=== PATIENT | male | born 1955 | race Caucasian/White ===

== ENCOUNTER → 2017-01-17 | Outpatient (CLI) | payer BC ==
[~2017-01-17] MED LIST: "\\\"BP PILL\\\""; AUGMENTIN 875 M1 TAB PO; CIPRO250 MG PO; CIPROFLOXACIN500 MG PO; DITROPAN5 MG PO; FLOMAX0.4 MG PO; LEVOFLOXACIN500 MG PO; LOMOCOT 0.025 M1 TAB PO; LOPRESSOR25 MG PO; MOTRIN800 MG PO; PERCOCET 325 MG1 TA2 PO; PERCOCET 325 MG1 TA3 PO; PERCOCET 325 MG1 TA5 PO; PERCOCET 325 MG1 TA7 PO; PREDNISONE20 MG PO; PYRIDIATE200 MG PO; PYRIDIUM200 MG PO; RESTORIL30 MG PO; ULTRAM50 MG PO; ZESTORETIC 12.51 TA1 PO; ZOFRAN4 MG PO; Zofran4 MG PO
[2017-01-18 18:05] LABS: HCV RNA (INTERNATIONAL UNITS) 14300000 IU/mL (.); HEPATITIS C QNT See Final Results IU/mL (.)
[2017-01-20 17:12] LABS: HCV REFLEX CHARGE CHG; HEPATITIS C GENOTYPE 2b (.)
== END | disposition home or self-care (01) ==
LOC: LAB 10:41
PROVIDERS: Family Medicine
DX: B19.20 Unspecified viral hepatitis C without hepatic coma (principal)

== ENCOUNTER → 2017-01-21 | Outpatient (CLI) | payer BC | END | disposition home or self-care (01) | LOC: US 07:08 | DX: N28.1 Cyst of kidney, acquired (principal); K76.89 Other specified diseases of liver ==

== ENCOUNTER → 2017-01-28 | Outpatient (CLI) | payer BC ==
--- NOTE | ~2017-01-28 | EKG ---
[place], [place] ELECTROCARDIOGRAM REPORT NAME: ALLIE HOBSON UNIT #: [id number] ROOM: DOCTOR: VINAYAK SADLER MD BIRTHDATE: [birth year] DOS: 01/28/2017 TIME: 1723 hours. Sinus rhythm with isolated PVCs, with nonspecific ST-T changes. VINAYAK SADLER MD CM:EKGRPT:ELECTROCARDIOGRAM REPORT [id number] 1409 VINAYAK SADLER MD
--- NOTE | ~2017-01-28 | EKG ---
[place], [place] ELECTROCARDIOGRAM REPORT NAME: ALLIE HOBSON UNIT #: [id number] ROOM: DOCTOR: VINAYAK SADLER MD BIRTHDATE: [birth year] DOS: 01/28/2017 TIME: 10:17:23 Normal sinus rhythm, isolated PVCs with nonspecific ST-T changes. VINAYAK SADLER MD CM:EKGRPT:ELECTROCARDIOGRAM REPORT 1427 1458 VINAYAK SADLER MD
== END | disposition home or self-care (01) ==
LOC: CARD 10:06
DX: R07.9 Chest pain, unspecified (principal)

== ENCOUNTER → 2017-02-04 | Outpatient (CLI) | payer BC ==
--- NOTE | ~2017-02-04 | ST ---
[place], [place] EXERCISE STRESS TEST REPORT NAME: ALLIE HOBSON [facility] #: [id number] UNIT #: [id number] ROOM: DOCTOR: VINAYAK SADLER MD BIRTHDATE: [birth year] DOS: 02/04/2017 The patient walked on the Matt protocol for 8 minutes and 11 seconds. Heart rate is 136, 85% of predicted heart rate. Procedure terminated on completion of protocol. Baseline echocardiogram, sinus rhythm with exercise. No new EKG changes. No chest pain. Blood pressure and heart rate response was normal. FINAL IMPRESSION: Normal EKG portion of the exercise stress test. FINAL IMPRESSION: No EKG changes. No chest pain, no dysrhythmia. Blood pressure and heart rate response was normal. Nuclear images will be reported separately. VINAYAK SADLER MD CM:STRESS:EXERCISE STRESS TEST REPORT 0712 0744 KEON SADLER MD
== END | disposition home or self-care (01) ==
LOC: CARD 03:01
DX: R07.89 Other chest pain (principal); R53.81 Other malaise

== ENCOUNTER → 2017-02-28 | Outpatient (CLI) | payer BC ==
[2017-02-28 08:55] LABS: URINE AMPHETAMINES < 1000 (1000ng/ml); URINE BARBITURATES < 200 (200ng/ml); URINE BENZODIAZEPINES < 200 (200ng/ml); URINE CANNABINOIDS (THC) < 50 (50ng/ml); URINE COCAINE < 300 (300ng/ml); URINE METHADONE < 300 (300ng/ml); URINE OPIATES < 300 (300ng/ml)
[2017-02-28 08:59] LABS: BASO % 0.7 % (0.0-1.0); EOS # 0.2 10*3/uL (0.0-0.4); EOS % 3.4 % (1.0-4.0); HEMATOCRIT 48.2 % (42.0-52.0); HEMOGLOBIN 16.1 g/dl (14.0-18.0); LYMPH # 1.9 10*3/uL (1.3-4.4); LYMPH % 30.2 % (27.0-41.0); MEAN CELL VOLUME 96.8 fl (80.0-94.0); MEAN CORPUSCULAR HGB 32.3 pg (27.0-31.0); MEAN CORPUSCULAR HGB CONC 33.4 g/dl (33.0-37.0); MEAN PLATELET VOLUME 10.4 fl (9.6-12.3); MONO # 0.5 10*3/uL (0.1-1.0); MONO % 7.5 % (3.0-9.0); NEUT # 3.6 10*3/uL (2.3-7.9); NEUT % 57.7 % (47.0-73.0); PLATELET COUNT AUTOMATED 180 10*3/uL (130-400); RED BLOOD COUNT 4.98 10*6/uL (4.50-5.90); RED CELL DISTRI WIDTH 13.6 % (0-14.5); URINE PHENCYCLIDINE < 25 (25ng/ml); WHITE BLOOD COUNT 6.2 10*3/uL (4.8-10.8)
[2017-02-28 09:20] LABS: ALBUMIN 3.3 gm/dl (3.1-4.5); BUN 19 mg/dl (7-24); CHLORIDE 106 mmol/L (98-107); CREATININE 1.22 mg/dL (0.70-1.30); LIPASE 295 U/L (73-393); POTASSIUM 3.8 mmol/L (3.5-5.1); SGOT/AST 159 IU/L (3-35); SGPT/ALT 208 U/L (12-78); SODIUM 139 mmol/L (136-145)
[2017-02-28 09:21] LABS: ALKALINE PHOSPHATASE 108 U/L (45-117); BILIRUBIN, DIRECT 0.9 mg/dL (0.0-0.2); TOTAL PROTEIN 6.8 gm/dL (6.4-8.2)
[2017-03-01 08:09] LABS: HEPATITIS B SURFACE AB 006395 Non Reactive (.)
== END | disposition home or self-care (01) ==
LOC: LAB 08:19
PROVIDERS: Nurse Practitioner Family
DX: B18.2 Chronic viral hepatitis C (principal); R79.89 Other specified abnormal findings of blood chemistry; R74.8 Abnormal levels of other serum enzymes

== ENCOUNTER → 2017-05-06 | Outpatient (CLI) | payer BC ==
[2017-05-06 10:54] LABS: HEMOGLOBIN 17.6 g/dl (14.0-18.0); MEAN CELL VOLUME 94.7 fl (80.0-94.0); MEAN CORPUSCULAR HGB 33.3 pg (27.0-31.0); MEAN CORPUSCULAR HGB CONC 35.2 g/dl (33.0-37.0); MEAN PLATELET VOLUME 9.7 fl (9.6-12.3); RED BLOOD COUNT 5.28 10*6/uL (4.50-5.90); RED CELL DISTRI WIDTH 12.2 % (0-14.5); WHITE BLOOD COUNT 10.1 10*3/uL (4.8-10.8)
[2017-05-06 11:22] LABS: ALKALINE PHOSPHATASE 80 U/L (45-117); BILIRUBIN, DIRECT 0.3 mg/dL (0.0-0.2); BUN 22 mg/dl (7-24); CHLORIDE 105 mmol/L (98-107); CREATININE 1.27 mg/dL (0.70-1.30); POTASSIUM 4.1 mmol/L (3.5-5.1); SGOT/AST 18 IU/L (3-35); SGPT/ALT 21 U/L (12-78); SODIUM 142 mmol/L (136-145)
[2017-05-08 20:08] LABS: HEPATITIS C QUANTITATION <15 IU/mL (.)
== END | disposition home or self-care (01) ==
LOC: LAB 10:29
PROVIDERS: Nurse Practitioner Family
DX: B18.2 Chronic viral hepatitis C (principal)

== ENCOUNTER → 2017-07-25 | Outpatient (CLI) | payer BC | END | disposition home or self-care (01) | LOC: RAD 11:52 | DX: M25.811 Other specified joint disorders, right shoulder (principal) ==

== ENCOUNTER → 2017-08-11 | Outpatient (CLI) | payer BC ==
[2017-08-11 08:16] LABS: BASO # 0.1 10*3/uL (0.0-0.1); BASO % 0.9 % (0.0-1.0); EOS # 0.4 10*3/uL (0.0-0.4); EOS % 4.3 % (1.0-4.0); HEMATOCRIT 50.4 % (42.0-52.0); HEMOGLOBIN 17.3 g/dl (14.0-18.0); LYMPH # 2.5 10*3/uL (1.3-4.4); LYMPH % 30.9 % (27.0-41.0); MEAN CELL VOLUME 95.6 fl (80.0-94.0); MEAN CORPUSCULAR HGB 32.8 pg (27.0-31.0); MEAN CORPUSCULAR HGB CONC 34.3 g/dl (33.0-37.0); MEAN PLATELET VOLUME 10.3 fl (9.6-12.3); MONO # 0.6 10*3/uL (0.1-1.0); MONO % 7.3 % (3.0-9.0); NEUT # 4.6 10*3/uL (2.3-7.9); NEUT % 56.1 % (47.0-73.0); PLATELET COUNT AUTOMATED 228 10*3/uL (130-400); RED BLOOD COUNT 5.27 10*6/uL (4.50-5.90); RED CELL DISTRI WIDTH 12.2 % (0-14.5); WHITE BLOOD COUNT 8.2 10*3/uL (4.8-10.8)
[2017-08-11 08:50] LABS: ALBUMIN 3.8 gm/dl (3.1-4.5); ALKALINE PHOSPHATASE 67 U/L (45-117); BILIRUBIN, DIRECT 0.2 mg/dL (0.0-0.2); BUN 25 mg/dl (7-24); CHLORIDE 105 mmol/L (98-107); CREATININE 1.21 mg/dL (0.70-1.30); POTASSIUM 3.9 mmol/L (3.5-5.1); SGOT/AST 19 IU/L (3-35); SGPT/ALT 28 U/L (12-78); SODIUM 142 mmol/L (136-145); TOTAL PROTEIN 7.4 gm/dL (6.4-8.2)
[2017-08-13 19:06] LABS: HEPATITIS C QUANTITATION HCV Not Detected IU/mL (.)
== END | disposition home or self-care (01) ==
LOC: LAB 06:48
PROVIDERS: Nurse Practitioner Family
DX: B18.2 Chronic viral hepatitis C (principal)

== ENCOUNTER → 2018-01-06 | Outpatient (CLI) | payer BC ==
[2018-01-06 08:47] LABS: ALBUMIN 3.9 gm/dl (3.1-4.5); BILIRUBIN, DIRECT 0.2 mg/dL (0.0-0.2); TOTAL PROTEIN 7.2 gm/dL (6.4-8.2)
[2018-01-07 18:04] LABS: HEPATITIS C QNT HCV Not Detected IU/mL (.)
== END | disposition home or self-care (01) ==
LOC: LAB 07:41
PROVIDERS: Nurse Practitioner Family
DX: B18.2 Chronic viral hepatitis C (principal)

== ENCOUNTER 2018-05-10 17:38 | Emergency (ER) | payer BC ==
[~2018-05-10] VITALS: Ht 182.8 cm; Wt 95.3 kg
[2018-05-10 18:09] LABS: BILIRUBIN NEGATIVE (NEGATIVE); BLOOD 3+ (NEGATIVE); CLARITY SL CLOUDY (CLEAR); COLOR YELLOW (YELLOW); GLUCOSE NEGATIVE (NEGATIVE); KETONE NEGATIVE (NEGATIVE); LEUKO ESTERASE NEGATIVE (NEGATIVE); NITRITE NEGATIVE (NEGATIVE); SPECIFIC GRAVITY >= 1.030 (1.005-1.030)
[2018-05-10 18:18] LABS: RBC TNTC rbc/hpf (0-2)
[2018-05-10 18:22] LABS: BACTERIA TRACE; HYALINE CAST 0-2
== END 2018-05-10 20:02 | disposition home or self-care (01) ==
LOC: ED 17:38
PROVIDERS: Emergency Medicine
DX: R31.9 Hematuria, unspecified (principal); N48.89 Other specified disorders of penis; Z87.442 Personal history of urinary calculi; Z79.899 Other long term (current) drug therapy

== ENCOUNTER → 2018-11-03 | Outpatient (CLI) | payer BC ==
[~2018-11-03] MED LIST changes: +AMLODIPINE BESYL5 MG PO; +AVPAK AZITHROM250 M1 PO; +LEVAQUIN500 M2 PO; +MEDROL DOSEPAK4 MG PO; +MUCINEX ER600 MG PO; +OXYCODONE HCL5 M1 PO; +PREDNISONE10 MG PO; +PROAIR HFA8.5 GM INH; +SUMATRIPTA6 MG/0.53 SQ; +TESSALON PERLE100 M1 PO; +ZESTORETIC 20-1 EACH PO; +[UNRECOGNIZED DRUG - OTHER] PO
--- NOTE | ~2018-11-03 | ST ---
[place], [place] EXERCISE STRESS TEST REPORT [id number] UNIT #: [id number] ROOM: DOCTOR: VINAYAK SADLER MD BIRTHDATE: [birth year] DOS: 11/03/2018 PORTION OF THE EXERCISE CARDIOLITE The patient walked on the Matt protocol for 7 minutes 45 seconds achieving a heart rate of 133, which is 85% predicted heart rate. Procedure was terminated, completion of protocol. Baseline cardiogram, sinus with exercise, no EKG changes, isolated PVC. Blood pressure and heart rate response was normal with adequate double product. FINAL IMPRESSION: No EKG changes with exercise. No chest pain with exercise. No dysrhythmia with exercise. Blood pressure and heart rate response was normal. Nuclear images will be reported separately. VINAYAK SADLER MD CM:STRESS:EXERCISE STRESS TEST REPORT 0801 1331 VINAYAK SADLER MD
--- NOTE | 2018-11-03 07:45 | NUR ---
INFORMED CONSENT OBTAINED FOR EXERCISE CARDIOLITE STRESS TEST WITH DR. SADLER. RESTING EKG SINUS MALCOLM WITH A SUPINE HR OF 59 WITH BP OF 130/80 AND HR OF 67 WITH BP OF 128/84 IN STANDING POSITION. PT COMPLETED 7:45 OF A 2:00 CHRISTA PROTOCOL WITH COMPLETION OF 3:45 OF STAGE III AT 3.4 MPH WITH A 14% GRADE. REACHED A PEAK HR OF 133 WHCIH IS 85% OF PREDICTED MAX WITH A PEAK BP OF 180/90. TEST TERMINATED BECAUSE OF FATIGUE. HAD NO CHEST PAIN OR ANY EKG CHANGES. HAS A GOOD EXERCISE TOLERANCE. LAST RECOVERY HR OF 106 WITH BP OF 146/80. AWAITING SCANNING IN STABLE CONDITION.
== END | disposition home or self-care (01) ==
LOC: CARD 01:01
DX: I20.9 Angina pectoris, unspecified (principal)

== ENCOUNTER 2018-12-10 03:30 | Inpatient (IN) | payer BC ==
[~2018-12-10] VITALS: Ht 182.8 cm; Wt 97.2 kg
[2018-12-10] VITALS (8 sets, daily range): BP systolic 116–158; BP diastolic 71–95
--- NOTE | ~2018-12-10 | EKG ---
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
--- NOTE | ~2018-12-10 | PR ---
[place], [place] PROGRESS NOTE NAME: ALLIE HOBSON UNIT #: [id number] ROOM: 506 DOCTOR: BRIDGETTE ONEIL MD,ANY BIRTHDATE: [birth year] DOS: 12/12/2018 PULMONARY PROGRESS NOTE SUBJECTIVE: He has bronchoscopy done yesterday with significant reduction and improvement of respiratory symptom were noted. Denies any symptoms of fever or chills. Denies symptoms of hemoptysis. Shortness of breath and wheezing improved markedly. OBJECTIVE: VITAL SIGNS: This morning, normal temperature, respiratory rate 20, heart rate 99, blood pressure 141/88. Pulse ox saturation on room air 97% saturation recorded. HEENT: Examination shows head was atraumatic. Eyes nonicterus. NECK: Supple. CARDIOVASCULAR: S1, S2 audible. LUNGS: Noted without any wheeze or crackles. ABDOMEN: Soft, nontender, bowel sounds present. EXTREMITIES: No acute change. IMPRESSION: Resolution of the acute exacerbation of chronic obstructive pulmonary disease, gradual and progressive at the present time. Improvement in respiratory symptom noted post-bronchoscopy, culture noted normal anitra. PLAN OF TREATMENT: The patient could be discharged home on oral antibiotics, bronchodilators, and tapering prednisone. Outpatient status was already planned to be done in the next few days. ANY ANGELES MD CM:PNTRANS 1530 2138 ANY ONEIL MD 12/21/18 1020 interface
--- NOTE | ~2018-12-10 | EKG ---
[place], [place] ELECTROCARDIOGRAM REPORT NAME: ALLIE HOBSON UNIT #: [id number] ROOM: 506 DOCTOR: JUAN LUIS DRAFT REPORT BIRTHDATE: [birth year] [facility] Test Date: 2018-12-10 Test Time: 12:50:52 Pat Name: ALLIE HOBSON Department: Room: 506 1 Gender: M Schedule Announcer: : 1955 Requested By: ANY ONEIL Order Number: [id number] Reading MD: Ashwin Fuller MD Measurements Intervals [place] Rate: 88 P: 56 RI: 145 QRS: -3 QRSD: 94 T: 14 QT: 373 QTc: 452 Interpretive Statements Sinus rhythm Baseline wander in lead(s) V1 Compared to ECG 11/14/2018 12:45:07 T-wave abnormality no longer present Electronically Signed On 12-14-2018 7:47:16 PDT by Ashwin Fuller MD CM:EKGRPT:ELECTROCARDIOGRAM REPORT 1250 0747 ANY MCKNIGHT DRAFT REPORT ANY ONEIL MD
--- NOTE | ~2018-12-10 | PROC NOTE ---
[place], [place] PROCEDURE NOTE [id number] #: [id number] ROOM: 506 DOCTOR: BRIDGETTE ONEIL MD,ANY BIRTHDATE: [birth year] DOS: 12/11/2018 PROCEDURE: Bronchoscopy. PREOPERATIVE DIAGNOSES: Severe cough and wheeze, not resolving. POSTOPERATIVE DIAGNOSES: Removal of the endobronchial mucus impaction, major airways bilaterally. COMPLICATIONS: None. ANESTHESIA: Local MAC. PROCEDURE DESCRIPTION: Informed consent obtained. The patient brought to the OR and placed in supine position. Conscious sedation administered. After that, the airway introduced into the mouth. Bronchoscope advanced to the airway into laryngeal area. Epiglottis and vocal cords were seen. The vocal cords will be symmetrical with the movements. Bronchoscope entered vocal cord and tracheal lumen. The tracheal lumen with moderate amount of mucus suctioned out to the brie level. After that, the bronchoscope further advanced to the brie level. Brie noted sharp. Right upper, right middle, right lower, left upper, lingular lobe bronchi were all examined. All secretion suctioned out with the help of normal saline wash and cleared out. The specimen sent for bronchial washing to the lab, awaiting culture. Procedure was well tolerated without difficulty. Postoperative findings will be discussed with the patient once the patient recovered the effects of acute sedation. ANY ANGELES MD CM:PROCNOTE:PROCEDURE NOTE 1253 1517 ANY ONEIL MD
--- NOTE | ~2018-12-10 | PR ---
[place], [place] PROGRESS NOTE NAME: ALLIE HOBSON UNIT #: [id number] ROOM: 506 DOCTOR: ANY RIVAS MD BIRTHDATE: [birth year] DOS: 12/11/2018 SUBJECTIVE: The patient continued with similar symptoms with severe wheezing and cough was noted nonproductive. Denies symptoms of fever, chills, coughing or any sputum expectoration. The patient denies any symptoms of hemoptysis. Denies symptoms of nausea, vomiting, diarrhea or any abdominal pain. The patient denies any headache or diplopia. N.p.o. past midnight for bronchoscopy planned to be done today. Remaining systems were reviewed, they were noted all negative. OBJECTIVE: VITAL SIGNS: For the patient, which are recorded this morning as normal temperature, respiratory rate of 18, heart rate 94, blood pressure 136/85. The pulse oxygen saturation recorded on 2 liters nasal cannula 95% saturation. HEENT: Head was atraumatic. Eyes nonicterus. NECK: Supple. CARDIOVASCULAR: S1, S2 is audible. LUNGS: Decreased breath sounds of the lungs bilaterally with expiratory wheezing. There were no crackles. ABDOMEN: Soft, nontender. Bowel sounds present. EXTREMITIES: Noted without acute edema, clubbing or cyanosis. MUSCULOSKELETAL: Noted without any acute deformities. CENTRAL NERVOUS SYSTEM: Noted without any acute deformities. LABORATORY DATA: CMP of this morning done BUN 35, creatinine 1.57, glucose 150. The CBC this morning, WBC count 12.5, hemoglobin and hematocrit normal, platelet count was normal. IMPRESSION: The patient with ongoing acute exacerbation of chronic obstructive pulmonary disease, acute tracheobronchitis suspected severe mucus impaction major airway, n.p.o. for bronchoscopy today. PLAN OF MANAGEMENT: The patient will be undergoing bronchoscopy today already planned. No changes in steroids, bronchodilators, mucolytics, and other treatments. Other therapy, plan and management. Additional treatment changes will be made based on progression of the illness or after bronchoscopy as necessary. [place], [place] PROGRESS NOTE NAME: ALLIE HOBSON UNIT #: [id number] ROOM: 506 DOCTOR: ANY RIVAS MD BIRTHDATE: [birth year] ANY ANGELES MD CM:PNTRANS 1250 1343 ANY ONEIL MD 12/11/18 1344 interface
--- NOTE | ~2018-12-10 | CON ---
[place], [place] REPORT OF CONSULTATION NAME: ALLIE HOBSON [facility] #: [id number] UNIT #: [id number] ROOM: 506 DOCTOR: ANY RIVAS MD BIRTHDATE: [birth year] DOS: 12/10/2018 PULMONARY CONSULTATION, EVALUATION AND MANAGEMENT CONSULTATION REQUESTED BY: Hospitalist Service. REASON FOR CONSULTATION: Assessment of nonresolving respiratory symptoms with exacerbation of COPD. HISTORY OF PRESENT ILLNESS: The patient is a 63-year-old white male who has scheduled an appointment in the office for 12/2018. The patient would like to see me because of his nonresolving respiratory symptoms. He has been noted with ongoing symptoms of coughing and chest congestion for the past 3 months. Symptoms are noted progressively worsening. Shortness breath is worsened significantly in the last couple of days, requiring assessment in the Emergency Room. He was also noted with coughing, which remains persistent and nonproductive. In spite of severe coughing attempts, the patient stated that the sputum could not be expectorated, he was feeling gurgling sensation in the chest because of the cough. He denies symptoms of hemoptysis. The patient denies symptoms of chest trauma. He has been taking his previous respiratory medications as well. He has been treated as an outpatient with mucolytics, bronchodilators, antibiotics and steroids without any improvement in the symptom resolution reported. REVIEW OF SYSTEMS: CONSTITUTIONAL SYMPTOMS: Fatigue and tiredness reported. Denies symptoms of fever or chills. EYES: Denies any burning, redness or tenderness. EARS, NOSE, THROAT SYMPTOMS: Denies sore throat, hoarseness, otalgia, postnasal drainage, or epistaxis. CARDIOVASCULAR SYSTEM: Denies anginal pain, edema or pain of the lower extremities. GASTROINTESTINAL SYMPTOMS: Denies dysphagia, nausea, vomiting, diarrhea, abdominal pain, hematemesis, melena, or hematochezia. SKIN: Denies abnormal lesions or rashes. CENTRAL NERVOUS SYSTEM: Denies dizziness, headache, diplopia, or syncopal episodes. Remaining systems were reviewed with the patient and they were noted all negative. PAST MEDICAL HISTORY: Reported as: 1. History of essential hypertension. 2. Past history of hematuria. 3. History reported for ongoing bronchitis. SOCIAL HISTORY: The patient lives at home. Denies history of alcohol use or illicit drug use. Tobacco use noted previously. 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 HOME MEDICATIONS: Listed as ProAir HFA, Norvasc, lisinopril and [place], [place] REPORT OF CONSULTATION NAME: ALLIE HOBSON UNIT #: [id number] ROOM: 506 DOCTOR: BRIDGETTE ONEIL MD,ANY BIRTHDATE: [birth year] hydrochlorothiazide combination. CURRENT MEDICATIONS: Which were administered on this hospitalization are noted as use of Solu-Medrol 60 mg b.i.d., Mucinex 1200 mg p.o. b.i.d., Lovenox for DVT prophylaxis, DuoNeb every 6 hours, magnesium hydroxide, Ringer's lactate, Levaquin, and some other meds. DRUG ALLERGIES: Noted as no known drug allergies. PHYSICAL EXAMINATION: GENERAL: This is a 63-year-old white male, currently sitting on the bed, without any acute distress. Height of 6 feet, weight of 215 pounds, BMI was not documented. VITAL SIGNS: Normal temperature, respiratory rate of 14-20, heart rate of 77-62, blood pressure of 160/95-125/71. The pulse oxygen saturation recorded as 97% saturation on two liters nasal cannula. HEENT: Examination shows head is atraumatic. Eyes nonicterus. NECK: Supple. Moderate obesity. CARDIOVASCULAR: S1 and S2 audible. LUNGS: Noted with general reduction in breath sounds bilaterally with expiratory wheezing. No crackles. ABDOMEN: Soft, nontender. Bowel sounds present. EXTREMITIES: Noted without any acute edema, clubbing or cyanosis. MUSCULOSKELETAL: Noted with no focal abnormalities or deformities. VISIBLE SKIN: No lesions or rashes. CENTRAL NERVOUS SYSTEM: Noted as cranial nerves 2 through 12 intact. LABORATORY DATA: CBC this morning - WBC count 8.7, hemoglobin and hematocrit normal, platelet count normal, eosinophils 11.5%. PT and PTT noted as normal. CMP that was done noted BUN of 19, creatinine 1.36. Troponins were normal. Lactic acid was 1.8. DIAGNOSTIC DATA: Chest x-ray that was one view in the Emergency Room was reviewed, shows hyperinflated lungs with possible emphysematous changes in the upper lungs. There was no visible acute pulmonary infiltration or any apparent nodules as well. IMPRESSION: 1. 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 2. Suspected mucus impaction of major airways, not resolving with current outpatient treatment as well resulting in chronic symptoms which has been noted bothersome and nonresolving. 3. Past history of nicotine abuse as well. PLAN OF MANAGEMENT: The patient will be continued with bronchodilators, oxygen supplementation, antibiotics, corticosteroids, and mucolytics. He was planned [place], [place] REPORT OF CONSULTATION NAME: ALLIE HOBSON UNIT #: [id number] ROOM: [facility] DOCTOR: ANY RIVAS MD BIRTHDATE: [birth year] for therapeutic bronchoscopy to be done tomorrow morning. The patient was suggested of the procedure and he agreeable with that. N.p.o. past midnight status will be achieved. No new changes at this time in the treatment will be immediately necessary. Treatment changes will be made with further clinical course on this current hospitalization. Thank you for allowing me to participate in the care of this patient. ANY ANGELES MD CM:CONSTR:REPORT OF CONSULTATION 1234 12/10/18 8160 interface
[~2018-12-10 03:30] MED LIST changes: -AMLODIPINE BESYL5 MG PO; -LEVAQUIN500 M2 PO; -MUCINEX ER600 MG PO; -PREDNISONE10 MG PO; -ZESTORETIC 20-1 EACH PO
[2018-12-10] MEDS ORDERED: AMLODIPINE BESYL5 MG PO (03:40)
[2018-12-10] MEDS ORDERED: ZESTORETIC 20-1 EACH PO (03:41)
[2018-12-10 04:06] LABS: BASO # 0.1 10*3/uL (0.0-0.1); BASO % 0.8 % (0.0-1.0); EOS % 11.5 % (1.0-4.0); HEMATOCRIT 48.2 % (42.0-52.0); HEMOGLOBIN 16.5 g/dl (14.0-18.0); LYMPH # 3.2 10*3/uL (1.3-4.4); LYMPH % 36.5 % (27.0-41.0); MEAN CELL VOLUME 94.7 fl (80.0-94.0); MEAN CORPUSCULAR HGB 32.4 pg (27.0-31.0); MEAN CORPUSCULAR HGB CONC 34.2 g/dl (33.0-37.0); MONO # 0.8 10*3/uL (0.1-1.0); MONO % 8.6 % (3.0-9.0); NEUT # 3.7 10*3/uL (2.3-7.9); NEUT % 42.3 % (47.0-73.0); PLATELET COUNT AUTOMATED 221 10*3/uL (130-400); RED BLOOD COUNT 5.09 10*6/uL (4.50-5.90); RED CELL DISTRI WIDTH 12.9 % (0-14.5); WHITE BLOOD COUNT 8.7 10*3/uL (4.8-10.8)
[2018-12-10 04:18] LABS: ACT PARTIAL THROMBO TIME 25.3 SECONDS (20.0-32.1); INTERNATIONAL NORM RATIO 0.9 (2.0-3.5)
[2018-12-10 04:22] LABS: ALBUMIN 3.8 gm/dl (3.1-4.5); ALKALINE PHOSPHATASE 70 U/L (45-117); BUN 19 mg/dl (7-24); CHLORIDE 108 mmol/L (98-107); CREATININE 1.36 mg/dL (0.70-1.30); LIPASE 279 U/L (73-393); POTASSIUM 3.8 mmol/L (3.5-5.1); SGOT/AST 18 IU/L (3-35); SGPT/ALT 35 U/L (12-78); SODIUM 143 mmol/L (136-145); TOTAL PROTEIN 7.4 gm/dL (6.4-8.2)
--- NOTE | 2018-12-10 04:41 | NUR ---
PT REPORTS HE FEELS A LITTLE BETTER AFTER RECEIVING SECOND BREATHING TX.
--- NOTE | 2018-12-10 05:06 | NUR ---
PT O2 SAT DROPPED TO 90% RA, PT PLACED ON 2L VIA NC.
--- NOTE | 2018-12-10 05:44 | NUR ---
MEDICATION OF LEVAQUIN OBTAINED FROM HOUSE WORKER.INFUSION OF 500MG LEVAQUIN INITIATED.
--- NOTE | 2018-12-10 06:00 | NUR ---
Time: 0600 A 63 year old MALE admitted to 5E under services of SATURNINO KURTZ DO. Pt. arrived via bed from ER. Chief complaint: SHORTNESS OF BREATHE, COPD EXACERBATION. PATIENT ORIENTED TO THE FLOOR 5E CALL LIGHT SYSTEM REVIEWED AND DEMONSTRATED ADVANCED DIRECTIVE, HEALTHY LIFESTYLES, AND BELONGINGS CHECKLIST REVIEWED AND COMPLETED. MALCOLM NEGRETE
--- NOTE | 2018-12-10 06:21 | NUR ---
DR. CLINE AWARE THAT PATIENT IS ON THE FLOOR. PATIENT WANTING TO SPEAK TO SOMEONE ABOUT CHANGING CODE STATUS. MED REC UP-TO-DATE PER PT.
--- NOTE | 2018-12-10 06:28 | NUR ---
DR. MEJIA UP TO DISCUSS CODE STATUS WITH PATIENT. PATIENT WANTING TO BE FULL CODE-NO INTUBATION.
--- NOTE | 2018-12-10 08:00 | NUR ---
Patient resting quietly with no c/o discomfort. Respirations easy and regular. Vital signs stable. No overt distress. CALDERON MARIN
--- NOTE | 2018-12-10 09:52 | NUR ---
MEDICATED WITH PO TYLENOL ORDERED PER PT REQUEST FOR C/O HEADACHE RATED 6/10.
--- NOTE | 2018-12-10 11:44 | NUR ---
PT INSTRUCTED ON USE OF FLUTTER VALVE. PT DEMONSTRATED PROPER TECHNIQUE. PT HAD SIGNIFICANT COUGHING WHEN USING THE FLUTTER AND C/O NAUSEA. DRY NPC. CPT EX[PLAINED TO PT. WILL PERFORM CPT USING MECHANICAL PERCUSSOR WITH ROSALINA AMADO.
--- NOTE | 2018-12-10 12:06 | NUR ---
MEDICATION EFFECTIVE FOR PAIN.
[2018-12-11] VITALS (8 sets, daily range): BP systolic 108–136; BP diastolic 60–85
[2018-12-11 06:29] LABS: BASO % 0.2 % (0.0-1.0); HEMATOCRIT 43.1 % (42.0-52.0); LYMPH # 1.1 10*3/uL (1.3-4.4); LYMPH % 8.6 % (27.0-41.0); MEAN CORPUSCULAR HGB 32.1 pg (27.0-31.0); MEAN CORPUSCULAR HGB CONC 33.4 g/dl (33.0-37.0); MEAN PLATELET VOLUME 10.1 fl (9.6-12.3); MONO # 0.6 10*3/uL (0.1-1.0); MONO % 4.9 % (3.0-9.0); NEUT # 10.6 10*3/uL (2.3-7.9); NEUT % 85.2 % (47.0-73.0); PLATELET COUNT AUTOMATED 204 10*3/uL (130-400); RED BLOOD COUNT 4.49 10*6/uL (4.50-5.90); RED CELL DISTRI WIDTH 13.1 % (0-14.5); WHITE BLOOD COUNT 12.5 10*3/uL (4.8-10.8)
[2018-12-11 06:30] LABS: HEMOGLOBIN 14.4 g/dl (14.0-18.0)
[2018-12-11 07:02] LABS: ALBUMIN 3.5 gm/dl (3.1-4.5); CREATININE 1.57 mg/dL (0.70-1.30); PHOSPHOROUS 2.9 mg/dL (2.5-4.9); TOTAL PROTEIN 6.8 gm/dL (6.4-8.2)
--- NOTE | 2018-12-11 07:15 | NUR ---
Patient resting quietly with no c/o discomfort. Respirations easy and regular. Vital signs stable. No overt distress. CALDERON MARIN
--- NOTE | 2018-12-11 08:02 | NUR ---
24 HR chart check completed.
--- NOTE | 2018-12-11 08:47 | NUR ---
LEAVING FOR BRONCH.
--- NOTE | 2018-12-11 10:30 | NUR ---
Patient resting quietly with no c/o discomfort. Respirations easy and regular. Vital signs stable. No overt distress. CALDERON MARIN
--- NOTE | 2018-12-11 13:37 | NUR ---
Defense Analyst in to talk to patient. Patient states lives at HOME with . There are NO steps in the home. Physician: PRIYA Pharmacy: [facility] [place] [facility] services: NO Patient's level of ADLs: INDEPENDENT Patient has working utilities: YES DME: NONE Follow-up physician's appointment after d/c: WILL BE MADE BY HOSPITALIST NURSE DIRECTOR ON DISCHARGE Does patient want to access PORTAL?: NO Discharge plan PT LIVES AT HOME WITH HIS AND IS INDEPENDENT IN CARE. STATES HE WILL RETURN HOME ON DISCHARGE WITH NO NEW NEEDS. CAN BE DISCHARGED WHEN MEDICALLY STABLE. WILL CONTINUE TO FOLLOW. STATES HE WILL HAVE A RIDE HOME.. GUILLAUME LOZANO
--- NOTE | 2018-12-11 14:35 | NUR ---
HOME O2 ASSESSMENT: PRE BP: 132/74, HR 95, RR, 18, PULS OX 95% ON ROOM AIR AT REST. AMBULATED PATIENT 2 BRISK LAPS IN HALLWAY, PULSE OX 94%-95% ON ROOM AIR WHILE AMBULATING. POST BP: 140/69, HR 99, RR 18, PULSE OX 95% ON ROOM AIR AT REST. APPEARED TO TOLERATE WELL.
--- NOTE | 2018-12-11 16:00 | NUR ---
Patient resting quietly with no c/o discomfort. Respirations easy and regular. Vital signs stable. No overt distress. CALDERON MARIN
[2018-12-12] VITALS: BP 130/82
--- NOTE | 2018-12-12 07:27 | NUR ---
Patient resting quietly with no c/o discomfort. Respirations easy and regular. Vital signs stable. No overt distress. CALDERON MARIN 24 HR chart check completed.
[2018-12-12 08:00] VITALS: BP 141/88
[2018-12-12 09:46] LABS: BASO % 0.1 % (0.0-1.0); HEMATOCRIT 45.4 % (42.0-52.0); HEMOGLOBIN 15.5 g/dl (14.0-18.0); LYMPH # 0.9 10*3/uL (1.3-4.4); LYMPH % 5.5 % (27.0-41.0); MEAN CORPUSCULAR HGB 32.4 pg (27.0-31.0); MEAN CORPUSCULAR HGB CONC 34.1 g/dl (33.0-37.0); MEAN PLATELET VOLUME 9.8 fl (9.6-12.3); MONO # 0.7 10*3/uL (0.1-1.0); MONO % 4.5 % (3.0-9.0); NEUT # 13.7 10*3/uL (2.3-7.9); NEUT % 88.3 % (47.0-73.0); PLATELET COUNT AUTOMATED 234 10*3/uL (130-400); RED BLOOD COUNT 4.78 10*6/uL (4.50-5.90); RED CELL DISTRI WIDTH 13.3 % (0-14.5); WHITE BLOOD COUNT 15.5 10*3/uL (4.8-10.8)
[2018-12-12 10:02] LABS: ALBUMIN 3.5 gm/dl (3.1-4.5); ALKALINE PHOSPHATASE 50 U/L (45-117); BUN 35 mg/dl (7-24); CHLORIDE 107 mmol/L (98-107); CREATININE 1.36 mg/dL (0.70-1.30); SGOT/AST 10 IU/L (3-35); SGPT/ALT 27 U/L (12-78); SODIUM 144 mmol/L (136-145)
--- NOTE | 2018-12-12 12:03 | NUR ---
DR ANGELES STATES OK FOR DC, DR VACA INFORMED.
[2018-12-12 12:05] LABS: ACID FAST SPEC PROCESSING Concentration (.)
[2018-12-12] MEDS ORDERED: MUCINEX ER600 MG PO (13:36)
[2018-12-12] MEDS ORDERED: PREDNISONE10 MG PO (13:36)
[2018-12-12] MEDS ORDERED: LEVAQUIN500 M2 PO (13:36)
--- NOTE | 2018-12-12 13:55 | NUR ---
LEAVING IN CARE OF , AMBULATORY.
[2019-01-27 11:21] LABS: ACID FAST CULTURE Negative (.)
== END 2018-12-12 13:55 | disposition home or self-care (01) | DRG 193 ==
LOC: ED 03:30 → 5E 04:53 → EDHOLD 04:53 → 5E 05:09
PROVIDERS: Family Medicine; Internal Medicine; Internal Medicine Critical Care Medicine; Student in an Organized Health Care Education/Training Program; ADMIT Internal Medicine
PROC: 0BC18ZZ Extirpation of Matter from Trachea, Via Natural or Artificial Opening Endoscopic (ICD-10-PCS; principal; 2018-12-11)
PROC: 0BC98ZZ Extirpation of Matter from Lingula Bronchus, Via Natural or Artificial Opening Endoscopic (ICD-10-PCS; 2018-12-11)
PROC: 0BC48ZZ Extirpation of Matter from Right Upper Lobe Bronchus, Via Natural or Artificial Opening Endoscopic (ICD-10-PCS; 2018-12-11)
PROC: 0BC88ZZ Extirpation of Matter from Left Upper Lobe Bronchus, Via Natural or Artificial Opening Endoscopic (ICD-10-PCS; 2018-12-11)
PROC: 0BC58ZZ Extirpation of Matter from Right Middle Lobe Bronchus, Via Natural or Artificial Opening Endoscopic (ICD-10-PCS; 2018-12-11)
PROC: 0BC38ZZ Extirpation of Matter from Right Main Bronchus, Via Natural or Artificial Opening Endoscopic (ICD-10-PCS; 2018-12-11)
PROC: 0BC78ZZ Extirpation of Matter from Left Main Bronchus, Via Natural or Artificial Opening Endoscopic (ICD-10-PCS; 2018-12-11)
PROC: 0BC68ZZ Extirpation of Matter from Right Lower Lobe Bronchus, Via Natural or Artificial Opening Endoscopic (ICD-10-PCS; 2018-12-11)
PROC: 0BCB8ZZ Extirpation of Matter from Left Lower Lobe Bronchus, Via Natural or Artificial Opening Endoscopic (ICD-10-PCS; 2018-12-11)
DX: J18.9 Pneumonia, unspecified organism (principal); N17.0 Acute kidney failure with tubular necrosis; J96.91 Respiratory failure, unspecified with hypoxia; J45.41 Moderate persistent asthma with (acute) exacerbation; J44.1 Chronic obstructive pulmonary disease with (acute) exacerbation; J44.0 Chronic obstructive pulmonary disease with (acute) lower respiratory infection; T17.490A Other foreign object in trachea causing asphyxiation, initial encounter; J20.9 Acute bronchitis, unspecified; I10 Essential (primary) hypertension; E66.3 Overweight; E87.8 Other disorders of electrolyte and fluid balance, not elsewhere classified; X58.XXXA Exposure to other specified factors, initial encounter; R73.9 Hyperglycemia, unspecified; E83.41 Hypermagnesemia; Y93.89 Activity, other specified; Y92.89 Other specified places as the place of occurrence of the external cause; Z82.49 Family history of ischemic heart disease and other diseases of the circulatory system; Z87.891 Personal history of nicotine dependence; Z79.899 Other long term (current) drug therapy; Y99.8 Other external cause status; Z68.29 Body mass index [BMI] 29.0-29.9, adult

== ENCOUNTER 2019-01-11 14:24 | Emergency (ER) | payer BC ==
[~2019-01-11] VITALS: Ht 182.8 cm; Wt 99.8 kg
[~2019-01-11 14:24] MED LIST changes: +AMLODIPINE BESYL5 MG PO; +LEVAQUIN500 M2 PO; +MUCINEX ER600 MG PO; +PREDNISONE10 MG PO; +ZESTORETIC 20-1 EACH PO
[2019-01-11 15:10] LABS: BASO # 0.1 10*3/uL (0.0-0.1); BASO % 0.8 % (0.0-1.0); EOS # 0.4 10*3/uL (0.0-0.4); EOS % 4.6 % (1.0-4.0); HEMATOCRIT 47.8 % (42.0-52.0); HEMOGLOBIN 16.5 g/dl (14.0-18.0); LYMPH # 3.3 10*3/uL (1.3-4.4); LYMPH % 35.8 % (27.0-41.0); MEAN CELL VOLUME 92.1 fl (80.0-94.0); MEAN CORPUSCULAR HGB 31.8 pg (27.0-31.0); MEAN CORPUSCULAR HGB CONC 34.5 g/dl (33.0-37.0); MEAN PLATELET VOLUME 10.6 fl (9.6-12.3); MONO # 0.9 10*3/uL (0.1-1.0); MONO % 9.8 % (3.0-9.0); NEUT # 4.5 10*3/uL (2.3-7.9); NEUT % 48.2 % (47.0-73.0); PLATELET COUNT AUTOMATED 230 10*3/uL (130-400); RED BLOOD COUNT 5.19 10*6/uL (4.50-5.90); RED CELL DISTRI WIDTH 12.9 % (0-14.5); WHITE BLOOD COUNT 9.3 10*3/uL (4.8-10.8)
[2019-01-11 15:45] LABS: ACT PARTIAL THROMBO TIME 22.5 SECONDS (20.0-32.1); INTERNATIONAL NORM RATIO 0.9 (2.0-3.5)
[2019-01-11 15:48] LABS: ALBUMIN 3.9 gm/dl (3.1-4.5); CREATININE 1.65 mg/dL (0.70-1.30); POTASSIUM 3.7 mmol/L (3.5-5.1); TOTAL PROTEIN 7.2 gm/dL (6.4-8.2)
[2019-01-11 16:45] LABS: BILIRUBIN NEGATIVE (NEGATIVE); BLOOD 3+ (NEGATIVE); CLARITY SL CLOUDY (CLEAR); COLOR YELLOW (YELLOW); GLUCOSE NEGATIVE (NEGATIVE); KETONE TRACE (NEGATIVE); LEUKO ESTERASE NEGATIVE (NEGATIVE); NITRITE NEGATIVE (NEGATIVE); PH 5.5 (5.0-9.0); SPECIFIC GRAVITY >= 1.030 (1.005-1.030); UROBILINOGEN 0.2 E.U./dl (0.2-1.0)
[2019-01-11 16:55] LABS: MUCOUS 1+; RBC TNTC rbc/hpf (0-2)
== END 2019-01-11 18:02 | disposition short-term general hospital (02) ==
LOC: ED 14:24
PROVIDERS: Emergency Medicine
DX: N13.2 Hydronephrosis with renal and ureteral calculous obstruction (principal); J44.9 Chronic obstructive pulmonary disease, unspecified; I10 Essential (primary) hypertension; Z87.442 Personal history of urinary calculi; Z79.2 Long term (current) use of antibiotics; Z79.899 Other long term (current) drug therapy; Z87.891 Personal history of nicotine dependence

== ENCOUNTER → 2019-03-16 | Outpatient (CLI) | payer BC, OTHER | END | disposition home or self-care (01) | LOC: RAD 09:34 | DX: N20.0 Calculus of kidney (principal); N28.89 Other specified disorders of kidney and ureter ==

== ENCOUNTER → 2019-03-17 | Outpatient (CLI) | payer BC, OTHER ==
[2019-03-17 11:45] LABS: BILIRUBIN NEGATIVE (NEGATIVE); BLOOD 2+ (NEGATIVE); CLARITY CLEAR (CLEAR); COLOR YELLOW (YELLOW); GLUCOSE NEGATIVE (NEGATIVE); KETONE NEGATIVE (NEGATIVE); LEUKO ESTERASE NEGATIVE (NEGATIVE); NITRITE NEGATIVE (NEGATIVE); SPECIFIC GRAVITY 1.025 (1.005-1.030); UROBILINOGEN 0.2 E.U./dl (0.2-1.0)
[2019-03-17 11:46] LABS: BASO # 0.1 10*3/uL (0.0-0.1); BASO % 0.6 % (0.0-1.0); EOS # 0.5 10*3/uL (0.0-0.4); EOS % 5.6 % (1.0-4.0); HEMATOCRIT 47.2 % (42.0-52.0); HEMOGLOBIN 15.8 g/dl (14.0-18.0); LYMPH # 2.4 10*3/uL (1.3-4.4); LYMPH % 28.8 % (27.0-41.0); MEAN CELL VOLUME 93.5 fl (80.0-94.0); MEAN CORPUSCULAR HGB 31.3 pg (27.0-31.0); MEAN CORPUSCULAR HGB CONC 33.5 g/dl (33.0-37.0); MEAN PLATELET VOLUME 9.8 fl (9.6-12.3); MONO # 0.8 10*3/uL (0.1-1.0); MONO % 8.9 % (3.0-9.0); NEUT # 4.7 10*3/uL (2.3-7.9); NEUT % 55.5 % (47.0-73.0); PLATELET COUNT AUTOMATED 210 10*3/uL (130-400); RED BLOOD COUNT 5.05 10*6/uL (4.50-5.90); RED CELL DISTRI WIDTH 12.5 % (0-14.5); WHITE BLOOD COUNT 8.4 10*3/uL (4.8-10.8)
[2019-03-17 12:18] LABS: ALKALINE PHOSPHATASE 62 U/L (45-117); BUN 16 mg/dl (7-24); CHLORIDE 106 mmol/L (98-107); CREATININE 1.38 mg/dL (0.70-1.30); SGOT/AST 16 IU/L (3-35); SGPT/ALT 33 U/L (12-78); SODIUM 142 mmol/L (136-145); TOTAL PROTEIN 7.4 gm/dL (6.4-8.2)
[2019-03-17 12:19] LABS: T3 UPTAKE 36 % (31-39)
[2019-03-17 12:24] LABS: BACTERIA 1+; RBC 21-30 rbc/hpf (0-2)
== END | disposition home or self-care (01) ==
LOC: LAB 11:23
PROVIDERS: Nurse Practitioner Family
DX: D40.0 Neoplasm of uncertain behavior of prostate (principal); N20.0 Calculus of kidney

== ENCOUNTER → 2019-03-19 | Outpatient (CLI) | payer BC, OTHER ==
[~2019-03-19] MED LIST changes: +DULERA 200 MCG8.8 GM INH; +PREDNISONE20 M1 PO; +TAMSULOSIN HCL0.4 MG PO; +VIBRAMYCIN100 MG PO; +VITAMIN D32000 UNI1 PO
[2019-03-25 18:06] LABS: BUSHITE 1.39 ratio (0.00-3.00); CALCIUM, URINE 14.7 mg/dL (Not Estab.); CALCIUM, URINE 187.4 mg/24 hr (100.0-300.0); CITRIC ACID (CITRATE) 819 mg/24 hr (320-1240); CREATININE, URINE 135.8 mg/dL (Not Estab.); CREATININE, URINE 1731.5 mg/24 hr (1000.0-2000.0); MAGNESIUM, URINE 12.4 mg/dL (Not Estab.); MONOSODIUM URATE 6.59 ratio (0.00-4.00); OSMOLALITY, URINE 621 (300-900); SODIUM, URINE 152 mmol/L (Not Estab.); SODIUM, URINE 194 (58-337); STRUVITE 0.01 ratio (0.00-1.00); URIC ACID 3.41 ratio (0.00-1.20); pH 24 HR URINE 5.7 (.)
== END | disposition home or self-care (01) ==
LOC: LAB 08:34
PROVIDERS: Nurse Practitioner Family
DX: D40.0 Neoplasm of uncertain behavior of prostate (principal); N20.0 Calculus of kidney

== ENCOUNTER → 2019-04-05 | Outpatient (CLI) | payer BC, OTHER | END | disposition home or self-care (01) | LOC: US 11:41 | DX: N20.0 Calculus of kidney (principal); N28.1 Cyst of kidney, acquired ==

== ENCOUNTER → 2019-04-15 | Outpatient (CLI) | payer BC, OTHER ==
[~2019-04-15] MED LIST changes: -PREDNISONE20 M1 PO; -VIBRAMYCIN100 MG PO
[2019-04-15 11:34] LABS: BASO # 0.1 10*3/uL (0.0-0.1); BASO % 0.4 % (0.0-1.0); EOS # 0.1 10*3/uL (0.0-0.4); EOS % 0.7 % (1.0-4.0); HEMATOCRIT 47.7 % (42.0-52.0); HEMOGLOBIN 15.7 g/dl (14.0-18.0); LYMPH # 1.6 10*3/uL (1.3-4.4); LYMPH % 13.8 % (27.0-41.0); MEAN CELL VOLUME 92.8 fl (80.0-94.0); MEAN CORPUSCULAR HGB 30.5 pg (27.0-31.0); MEAN CORPUSCULAR HGB CONC 32.9 g/dl (33.0-37.0); MEAN PLATELET VOLUME 10.5 fl (9.6-12.3); MONO # 0.7 10*3/uL (0.1-1.0); MONO % 5.6 % (3.0-9.0); NEUT # 9.4 10*3/uL (2.3-7.9); NEUT % 78.9 % (47.0-73.0); PLATELET COUNT AUTOMATED 234 10*3/uL (130-400); RED BLOOD COUNT 5.14 10*6/uL (4.50-5.90); RED CELL DISTRI WIDTH 12.5 % (0-14.5); WHITE BLOOD COUNT 11.9 10*3/uL (4.8-10.8)
[2019-04-15 12:00] LABS: ALBUMIN 3.7 gm/dl (3.1-4.5); CREATININE 1.47 mg/dL (0.70-1.30); POTASSIUM 3.5 mmol/L (3.5-5.1); TOTAL PROTEIN 7.5 gm/dL (6.4-8.2)
[2019-04-15 12:07] LABS: THYROID STIM HORMONE (HS) 0.543 uIU/ml (0.358-4.75)
== END | disposition home or self-care (01) ==
LOC: LAB 10:41
PROVIDERS: Nurse Practitioner Family
DX: L29.9 Pruritus, unspecified (principal); J45.909 Unspecified asthma, uncomplicated; R06.02 Shortness of breath

== ENCOUNTER 2019-04-16 14:36 | Inpatient (IN) | payer BC, OTHER ==
[~2019-04-16] VITALS: Ht 182.9 cm; Wt 102.3 kg
--- NOTE | ~2019-04-16 | EKG ---
[place], [place] ELECTROCARDIOGRAM REPORT NAME: ALLIE HOBSON UNIT #: [id number] ROOM: 512 DOCTOR: JUAN LUIS DRAFT REPORT BIRTHDATE: [birth year] [facility] Test Date: 2019-04-16 Test Time: 16:25:04 Pat Name: ALLIE HOBSON Department: Room: 512 Gender: M Hepatologist: Umesh Rodriguez : 1955 Requested By: PATRICIA JOHNSON Order Number: [id number] Reading MD: Librado Dill MD Measurements Intervals [place] Rate: 91 P: 62 [place]: 138 QRS: 6 QRSD: 94 T: 16 QT: 356 QTc: 439 Interpretive Statements Sinus rhythm Compared to ECG 12/10/2018 12:50:52 No significant changes Electronically Signed On 04-17-2019 14:13:09 PDT by Librado Dill MD CM:EKGRPT:ELECTROCARDIOGRAM REPORT 1625 1413 PATRICIA JOHNSON DO EPIPHANY DRAFT REPORT PATRICIA JOHNSON DO
[~2019-04-16 14:36] MED LIST changes: -DULERA 200 MCG8.8 GM INH; -TAMSULOSIN HCL0.4 MG PO; -VITAMIN D32000 UNI1 PO
[2019-04-16 14:37] VITALS: BP 123/87
[2019-04-16 15:26] LABS: HEMATOCRIT 45.5 % (42.0-52.0); HEMOGLOBIN 15.5 g/dl (14.0-18.0); MEAN CELL VOLUME 92.1 fl (80.0-94.0); MEAN CORPUSCULAR HGB 31.4 pg (27.0-31.0); MEAN CORPUSCULAR HGB CONC 34.1 g/dl (33.0-37.0); MEAN PLATELET VOLUME 9.6 fl (9.6-12.3); PLATELET COUNT AUTOMATED 207 10*3/uL (130-400); RED BLOOD COUNT 4.94 10*6/uL (4.50-5.90); RED CELL DISTRI WIDTH 12.5 % (0-14.5); WHITE BLOOD COUNT 12.4 10*3/uL (4.8-10.8)
[2019-04-16 15:54] LABS: ATYPICAL LYMPHS 1 % (0-0); TOTAL CELLS COUNTED 100 #CELLS
[2019-04-16 15:55] LABS: PLATELET SUFFICIENCY NORMAL (NORMAL)
[2019-04-16 15:56] LABS: ALBUMIN 3.5 gm/dl (3.1-4.5); ALKALINE PHOSPHATASE 45 U/L (45-117); BUN 28 mg/dl (7-24); CHLORIDE 106 mmol/L (98-107); CREATININE 1.42 mg/dL (0.70-1.30); POTASSIUM 3.6 mmol/L (3.5-5.1); SGOT/AST 6 IU/L (3-35); SGPT/ALT 22 U/L (12-78); SODIUM 138 mmol/L (136-145); TOTAL PROTEIN 7.7 gm/dL (6.4-8.2)
[2019-04-16 16:00] VITALS: BP 120/70; BP 124/68
[2019-04-16 16:02] LABS: THYROID STIM HORMONE (HS) 0.647 uIU/ml (0.358-4.75)
[2019-04-16 16:08] LABS: TROPONIN I < 0.015 ng/ml (<0.045)
[2019-04-16 16:29] LABS: BILIRUBIN NEGATIVE (NEGATIVE); BLOOD 2+ (NEGATIVE); CLARITY SL CLOUDY (CLEAR); COLOR YELLOW (YELLOW); GLUCOSE NEGATIVE (NEGATIVE); KETONE NEGATIVE (NEGATIVE); LEUKO ESTERASE 1+ (NEGATIVE); NITRITE POSITIVE (NEGATIVE); PH 5.5 (5.0-9.0); SPECIFIC GRAVITY 1.025 (1.005-1.030); UROBILINOGEN 0.2 E.U./dl (0.2-1.0)
[2019-04-16 17:00] LABS: BACTERIA 4+; WBC 51-100 wbc/hpf (0-5)
[2019-04-16 18:25] VITALS: BP 138/85
--- NOTE | 2019-04-16 18:25 | NUR ---
A 64, admitted to , under the services of CARRINGTON Wing DO with a diagnosis of UTI,SEPSIS. Chief complaint is FEVER,CHILLS,BURNING ON URINATION. Patient arrived via stretcher from ER. Monitor applied. Initial assessment completed. Vital signs taken and recorded. CARRINGTON WING DO notified of admission to the unit. Orders received. See assessment for past medical history, medications and allergies. Patient and/or family oriented to unit. [facility] visitation policy reviewed. Clothing/patient valuable form completed. ALEJANDRO
[2019-04-16 18:30] VITALS: BP 138/85
[2019-04-16] MEDS ORDERED: DULERA 200 MCG8.8 GM INH (18:42)
[2019-04-16 20:00] VITALS: BP 138/77
[2019-04-17] VITALS: BP 160/86
--- NOTE | 2019-04-17 00:50 | NUR ---
AROUSES EASILY UPON ENTERING THE ROOM. IV FLUIDS INFUSING INTO LEFT ANTECUBITAL WITHOUT DIFFICULTY; SITE WRAPPED DUE TO PATIENT HAVING A LOT OF HAIR. IV SITE ASYMPTOMATIC. PT. VOICES NO C/O AT THIS TIME EXCEPT THAT HE STATES THAT HE FEELS THOUGH HE IS NOT VOIDING ENOUGH. USING URINAL FOR ACCURATE OUTPUT. REFUSING ANY PAIN MEDICATION AT THIS TIME. CALL LIGHT WITHIN REACH.
--- NOTE | 2019-04-17 04:00 | NUR ---
RESTING IN BED WITH EYES CLOSED. IV FLUIDS INFUSING ORDERED. CALL LIGHT WITHIN REACH.
[2019-04-17 05:00] VITALS: BP 120/70
--- NOTE | 2019-04-17 05:00 | NUR ---
BLOOD PRESSURE RETAKEN AT THIS TIME; SEE VITAL SIGN FLOW SHEET. PT. VOICES NO C/O. IV FLUIDS CONTINUE TO INFUSE WITHOUT DIFFICULTY; SITE ASYMPTOMATIC. CALL LIGHT WITHIN REACH.
[2019-04-17 06:41] LABS: BASO # 0.1 10*3/uL (0.0-0.1); BASO % 0.6 % (0.0-1.0); EOS # 0.1 10*3/uL (0.0-0.4); EOS % 0.6 % (1.0-4.0); HEMOGLOBIN 13.9 g/dl (14.0-18.0); LYMPH # 1.5 10*3/uL (1.3-4.4); LYMPH % 16.2 % (27.0-41.0); MEAN CELL VOLUME 92.7 fl (80.0-94.0); MEAN CORPUSCULAR HGB 30.7 pg (27.0-31.0); MEAN CORPUSCULAR HGB CONC 33.1 g/dl (33.0-37.0); MEAN PLATELET VOLUME 10.4 fl (9.6-12.3); MONO # 1.5 10*3/uL (0.1-1.0); MONO % 16.7 % (3.0-9.0); NEUT # 5.9 10*3/uL (2.3-7.9); NEUT % 65.6 % (47.0-73.0); PLATELET COUNT AUTOMATED 196 10*3/uL (130-400); RED BLOOD COUNT 4.53 10*6/uL (4.50-5.90); RED CELL DISTRI WIDTH 12.5 % (0-14.5); WHITE BLOOD COUNT 8.9 10*3/uL (4.8-10.8)
[2019-04-17 07:05] LABS: BUN 23 mg/dl (7-24); CHLORIDE 111 mmol/L (98-107); CREATININE 1.13 mg/dL (0.70-1.30); PHOSPHOROUS 2.4 mg/dL (2.5-4.9); POTASSIUM 3.7 mmol/L (3.5-5.1); SODIUM 141 mmol/L (136-145)
[2019-04-17 08:00] VITALS: BP 138/82
[2019-04-17 12:00] VITALS: BP 140/85
[2019-04-17 16:00] VITALS: BP 113/72; BP 94/51
[2019-04-17 20:00] VITALS: BP 133/73
--- NOTE | 2019-04-17 20:42 | NUR ---
PATIENT MEDICATED WITH PRN RESTORIL PER REQUEST FOR SLEEP. WILL MONITOR FOR EFFECTIVENESS.
--- NOTE | 2019-04-17 21:30 | NUR ---
PATIENT ASLEEP WITH RESPIRATIONS EVEN AND UNLABORED. PRN RESTORIL EFFECTIVE. CALL LIGHT WITHIN REACH.
[2019-04-18] VITALS: BP 141/67
--- NOTE | 2019-04-18 00:32 | NUR ---
DR. FELIZ NOTIFIED OF POSITIVE BLOOD CULTURES. GPC IN PAIRS AND CLUSTERS IN THE AEROBIC BOTTLE. DR. FELIZ WILL PUT ORDERS IN.
[2019-04-18 07:36] LABS: BASO # 0.1 10*3/uL (0.0-0.1); BASO % 0.8 % (0.0-1.0); EOS # 0.2 10*3/uL (0.0-0.4); EOS % 3.1 % (1.0-4.0); HEMATOCRIT 42.5 % (42.0-52.0); HEMOGLOBIN 13.8 g/dl (14.0-18.0); LYMPH # 1.3 10*3/uL (1.3-4.4); LYMPH % 20.5 % (27.0-41.0); MEAN CORPUSCULAR HGB 29.9 pg (27.0-31.0); MEAN CORPUSCULAR HGB CONC 32.5 g/dl (33.0-37.0); MEAN PLATELET VOLUME 10.5 fl (9.6-12.3); MONO % 15.3 % (3.0-9.0); NEUT # 3.9 10*3/uL (2.3-7.9); NEUT % 59.8 % (47.0-73.0); PLATELET COUNT AUTOMATED 195 10*3/uL (130-400); RED BLOOD COUNT 4.62 10*6/uL (4.50-5.90); RED CELL DISTRI WIDTH 12.5 % (0-14.5); WHITE BLOOD COUNT 6.5 10*3/uL (4.8-10.8)
[2019-04-18 08:00] VITALS: BP 125/63
[2019-04-18 08:10] LABS: CHLORIDE 114 mmol/L (98-107); POTASSIUM 3.7 mmol/L (3.5-5.1); SODIUM 144 mmol/L (136-145)
[2019-04-18 08:15] LABS: BUN 22 mg/dl (7-24); CREATININE 1.11 mg/dL (0.70-1.30)
[2019-04-18 09:33] VITALS: BP 122/82
--- NOTE | 2019-04-18 09:38 | NUR ---
TYLENOL GIVEN PER PATIENT REQUEST FOR COMPLAINTS OF HEADACHE AT A 01/06. WILL ASSESS EFFECTIVENESS.
--- NOTE | 2019-04-18 10:04 | NUR ---
NOTIFIED DR. BEAN GROUP OF CONSULT.
[2019-04-18 12:00] VITALS: BP 136/93
[2019-04-18 20:00] VITALS: BP 130/94
--- NOTE | 2019-04-18 20:50 | NUR ---
PATIENT REQUESTED SLEEPING PILL. PRN RESTORIL GIVEN. PATIENT WATCHING TV IN BED. NO C/O PAIN AT THIS TIME. CALL LIGHT WITHIN REACH. WILL MONITOR FOR EFFECTIVENESS.
--- NOTE | 2019-04-18 21:45 | NUR ---
PRN RESTORIL EFFECTIVE.
[2019-04-19] VITALS: BP 122/72
--- NOTE | 2019-04-19 01:33 | NUR ---
24 HR chart check completed.
--- NOTE | 2019-04-19 04:15 | NUR ---
PATIENT SLEEPING IN BED. RESPIRATIONS EVEN AND UNLABORED. CALL LIGHT WITHIN REACH.
[2019-04-19 06:35] LABS: BASO # 0.1 10*3/uL (0.0-0.1); EOS # 0.3 10*3/uL (0.0-0.4); EOS % 4.8 % (1.0-4.0); HEMOGLOBIN 14.5 g/dl (14.0-18.0); LYMPH # 1.8 10*3/uL (1.3-4.4); LYMPH % 24.9 % (27.0-41.0); MEAN CELL VOLUME 92.1 fl (80.0-94.0); MEAN CORPUSCULAR HGB 30.3 pg (27.0-31.0); MONO # 0.8 10*3/uL (0.1-1.0); MONO % 10.8 % (3.0-9.0); NEUT # 4.2 10*3/uL (2.3-7.9); NEUT % 58.1 % (47.0-73.0); PLATELET COUNT AUTOMATED 223 10*3/uL (130-400); RED BLOOD COUNT 4.78 10*6/uL (4.50-5.90); RED CELL DISTRI WIDTH 12.6 % (0-14.5); WHITE BLOOD COUNT 7.1 10*3/uL (4.8-10.8)
[2019-04-19 06:48] LABS: BUN 18 mg/dl (7-24); CHLORIDE 113 mmol/L (98-107); CREATININE 1.08 mg/dL (0.70-1.30); POTASSIUM 4.3 mmol/L (3.5-5.1); SODIUM 145 mmol/L (136-145)
[2019-04-19 08:00] VITALS: BP 143/80
--- NOTE | 2019-04-19 09:00 | NUR ---
Braille Typist in to talk to patient. Patient states lives at home with wie. There are few steps in the home. Physician: jalyn [facility]acy: [facility] [place] [facility] services: none Patient's level of ADLs: INDEPENDENT Patient has working utilities: all working DME: none Follow-up physician's appointment after d/c: will be made by hospitalist nurse director upon discharged Does patient want to access PORTAL?: no Discharge plan discussed with patient, he lives at home with , he is independent in adls and ambulation, he states he will return home when medically stable and denies any home needs. PRISCILA PAGAN
--- NOTE | 2019-04-19 09:24 | NUR ---
24 HR chart check completed.
[2019-04-19 12:00] VITALS: BP 134/74
[2019-04-19] MEDS ORDERED: LEVAQUIN500 M2 PO (15:20)
[2019-04-19 16:00] VITALS: BP 135/91
[2019-04-19 20:00] VITALS: BP 135/77
[2019-04-20] VITALS: BP 140/78
--- NOTE | 2019-04-20 06:50 | NUR ---
NOTIFIED DR. GROSSMAN OF POSITIVE BLOOD CULTURE. NO NEW ORDERS RECEIVED.
[2019-04-20 08:00] VITALS: BP 126/71
--- NOTE | 2019-04-20 09:00 | NUR ---
case management visits with patient, he states he will be returning home today and denies any home needs
[2019-04-20] MEDS ORDERED: VITAMIN D32000 UNI1 PO (09:17)
[2019-04-20] MEDS ORDERED: TAMSULOSIN HCL0.4 MG PO (09:17)
--- NOTE | 2019-04-20 09:39 | NUR ---
PT DISCHARGED AT THIS TIME TO HOME. PT REQUESTED TO WAIT IN LOBBY FOR HIS TO PICK HIM UP. AMBULATED OUT.
--- NOTE | 2019-04-20 09:39 | NUR ---
Discharge instructions reviewed with patient/family. Patient receptive and verbalizes understanding. Follow-up care arranged. Written instructions given to patient/family. YVONNE CÁRDENAS
== END 2019-04-20 09:39 | disposition home or self-care (01) | DRG 871 ==
LOC: ED 14:36 → EDHOLD 16:52 → 5E 16:52
PROVIDERS: Internal Medicine; Student in an Organized Health Care Education/Training Program; ADMIT Emergency Medicine
DX: A41.9 Sepsis, unspecified organism (principal); N17.0 Acute kidney failure with tubular necrosis; N39.0 Urinary tract infection, site not specified; B96.1 Klebsiella pneumoniae [K. pneumoniae] as the cause of diseases classified elsewhere; R33.9 Retention of urine, unspecified; R65.20 Severe sepsis without septic shock; E83.41 Hypermagnesemia; J45.20 Mild intermittent asthma, uncomplicated; J44.9 Chronic obstructive pulmonary disease, unspecified; I10 Essential (primary) hypertension; Z83.3 Family history of diabetes mellitus; Z82.49 Family history of ischemic heart disease and other diseases of the circulatory system; Z80.9 Family history of malignant neoplasm, unspecified; Z79.899 Other long term (current) drug therapy

== ENCOUNTER 2019-06-04 06:59 | Emergency (ER) | payer BC, OTHER ==
[~2019-06-04] VITALS: Ht 182.8 cm; Wt 99.8 kg
[~2019-06-04 06:59] MED LIST changes: +DULERA 200 MCG8.8 GM INH; +TAMSULOSIN HCL0.4 MG PO; +VITAMIN D32000 UNI1 PO
[2019-06-04 07:53] LABS: BASO # 0.1 10*3/uL (0.0-0.1); BASO % 0.5 % (0.0-1.0); EOS # 0.6 10*3/uL (0.0-0.4); EOS % 5.2 % (1.0-4.0); HEMATOCRIT 48.4 % (42.0-52.0); HEMOGLOBIN 16.2 g/dl (14.0-18.0); LYMPH # 2.4 10*3/uL (1.3-4.4); LYMPH % 20.5 % (27.0-41.0); MEAN CELL VOLUME 89.3 fl (80.0-94.0); MEAN CORPUSCULAR HGB 29.9 pg (27.0-31.0); MEAN CORPUSCULAR HGB CONC 33.5 g/dl (33.0-37.0); MEAN PLATELET VOLUME 10.1 fl (9.6-12.3); MONO # 1.1 10*3/uL (0.1-1.0); MONO % 9.2 % (3.0-9.0); NEUT # 7.4 10*3/uL (2.3-7.9); NEUT % 64.1 % (47.0-73.0); PLATELET COUNT AUTOMATED 274 10*3/uL (130-400); RED BLOOD COUNT 5.42 10*6/uL (4.50-5.90); RED CELL DISTRI WIDTH 13.5 % (0-14.5); WHITE BLOOD COUNT 11.6 10*3/uL (4.8-10.8)
[2019-06-04 08:10] LABS: ALBUMIN 3.6 gm/dl (3.1-4.5); ALKALINE PHOSPHATASE 62 U/L (45-117); BUN 19 mg/dl (7-24); CHLORIDE 109 mmol/L (98-107); CREATININE 1.37 mg/dL (0.70-1.30); POTASSIUM 3.7 mmol/L (3.5-5.1); SGOT/AST 18 IU/L (3-35); SGPT/ALT 26 U/L (12-78); SODIUM 143 mmol/L (136-145); TOTAL PROTEIN 7.8 gm/dL (6.4-8.2)
[2019-06-04] MEDS ORDERED: PREDNISONE20 M1 PO (08:44)
[2019-06-04] MEDS ORDERED: VIBRAMYCIN100 MG PO (08:44)
== END 2019-06-04 08:48 | disposition home or self-care (01) ==
LOC: ED 06:59
PROVIDERS: Emergency Medicine
DX: J44.1 Chronic obstructive pulmonary disease with (acute) exacerbation (principal); R11.2 Nausea with vomiting, unspecified; I10 Essential (primary) hypertension; J45.909 Unspecified asthma, uncomplicated; Z79.899 Other long term (current) drug therapy; Z87.891 Personal history of nicotine dependence

== ENCOUNTER 2019-09-17 11:16 | Emergency (ER) | payer OTHER ==
[~2019-09-17] VITALS: Ht 182.8 cm; Wt 104.3 kg
[~2019-09-17 11:16] MED LIST changes: +PREDNISONE20 M1 PO; +VIBRAMYCIN100 MG PO
[2019-09-17 12:01] LABS: BASO # 0.1 10*3/uL (0.0-0.1); BASO % 0.6 % (0.0-1.0); EOS # 0.3 10*3/uL (0.0-0.4); EOS % 3.4 % (1.0-4.0); HEMATOCRIT 47.2 % (42.0-52.0); HEMOGLOBIN 16.1 g/dl (14.0-18.0); LYMPH # 1.9 10*3/uL (1.3-4.4); LYMPH % 19.7 % (27.0-41.0); MEAN CELL VOLUME 89.7 fl (80.0-94.0); MEAN CORPUSCULAR HGB 30.6 pg (27.0-31.0); MEAN CORPUSCULAR HGB CONC 34.1 g/dl (33.0-37.0); MEAN PLATELET VOLUME 9.8 fl (9.6-12.3); MONO # 0.9 10*3/uL (0.1-1.0); MONO % 9.2 % (3.0-9.0); NEUT # 6.4 10*3/uL (2.3-7.9); NEUT % 66.8 % (47.0-73.0); PLATELET COUNT AUTOMATED 229 10*3/uL (130-400); RED BLOOD COUNT 5.26 10*6/uL (4.50-5.90); RED CELL DISTRI WIDTH 13.1 % (0-14.5); WHITE BLOOD COUNT 9.5 10*3/uL (4.8-10.8)
[2019-09-17 12:15] LABS: ALBUMIN 3.9 gm/dl (3.1-4.5); ALKALINE PHOSPHATASE 54 U/L (45-117); BUN 17 mg/dl (7-24); CHLORIDE 110 mmol/L (98-107); CREATININE 1.26 mg/dL (0.70-1.30); POTASSIUM 3.8 mmol/L (3.5-5.1); SGOT/AST 19 IU/L (3-35); SGPT/ALT 35 U/L (12-78); SODIUM 142 mmol/L (136-145); TOTAL PROTEIN 6.9 gm/dL (6.4-8.2)
== END 2019-09-17 13:21 | disposition short-term general hospital (02) ==
LOC: ED 11:16
PROVIDERS: Nurse Practitioner Family
DX: N13.2 Hydronephrosis with renal and ureteral calculous obstruction (principal); I10 Essential (primary) hypertension; E78.5 Hyperlipidemia, unspecified; Z87.442 Personal history of urinary calculi; Z79.899 Other long term (current) drug therapy; Z87.891 Personal history of nicotine dependence

== ENCOUNTER 2019-09-21 05:00 | Emergency (ER) | payer OTHER ==
[~2019-09-21] VITALS: Ht 182.8 cm; Wt 104.3 kg
[2019-09-21 06:03] LABS: BACTERIA 1+; BILIRUBIN 2+ (NEGATIVE); BLOOD 3+ (NEGATIVE); CLARITY TURBID (CLEAR); COLOR ORANGE (YELLOW); GLUCOSE NEGATIVE (NEGATIVE); KETONE NEGATIVE (NEGATIVE); LEUKO ESTERASE 1+ (NEGATIVE); NITRITE POSITIVE (NEGATIVE); RBC TNTC rbc/hpf (0-2); SPECIFIC GRAVITY 1.025 (1.005-1.030); WBC 21-30 wbc/hpf (0-5)
[2019-09-21 06:05] LABS: MUCOUS TRACE
[2019-09-21 06:10] LABS: BASO # 0.1 10*3/uL (0.0-0.1); BASO % 0.6 % (0.0-1.0); EOS # 0.6 10*3/uL (0.0-0.4); HEMATOCRIT 49.1 % (42.0-52.0); HEMOGLOBIN 16.4 g/dl (14.0-18.0); LYMPH # 1.5 10*3/uL (1.3-4.4); LYMPH % 14.9 % (27.0-41.0); MEAN CELL VOLUME 91.6 fl (80.0-94.0); MEAN CORPUSCULAR HGB 30.6 pg (27.0-31.0); MEAN CORPUSCULAR HGB CONC 33.4 g/dl (33.0-37.0); MONO # 0.9 10*3/uL (0.1-1.0); MONO % 8.9 % (3.0-9.0); NEUT # 7.2 10*3/uL (2.3-7.9); NEUT % 69.2 % (47.0-73.0); PLATELET COUNT AUTOMATED 243 10*3/uL (130-400); RED BLOOD COUNT 5.36 10*6/uL (4.50-5.90); RED CELL DISTRI WIDTH 13.2 % (0-14.5); WHITE BLOOD COUNT 10.3 10*3/uL (4.8-10.8)
[2019-09-21 06:21] LABS: ALBUMIN 3.8 gm/dl (3.1-4.5); CREATININE 1.63 mg/dL (0.70-1.30); POTASSIUM 3.7 mmol/L (3.5-5.1); TOTAL PROTEIN 6.9 gm/dL (6.4-8.2)
== END 2019-09-21 07:35 | disposition home or self-care (01) ==
LOC: ED 05:00
PROVIDERS: Emergency Medicine
DX: N39.0 Urinary tract infection, site not specified (principal); N17.9 Acute kidney failure, unspecified; N13.2 Hydronephrosis with renal and ureteral calculous obstruction; J45.909 Unspecified asthma, uncomplicated; J44.9 Chronic obstructive pulmonary disease, unspecified; I10 Essential (primary) hypertension; Z79.899 Other long term (current) drug therapy; Z87.891 Personal history of nicotine dependence

== ENCOUNTER 2020-01-27 16:55 | Emergency (ER) | payer OTHER ==
[2020-01-27 17:31] LABS: BASO # 0.1 10*3/uL (0.0-0.1); BASO % 0.7 % (0.0-1.0); EOS # 0.3 10*3/uL (0.0-0.4); EOS % 3.7 % (1.0-4.0); HEMATOCRIT 44.7 % (42.0-52.0); LYMPH # 2.2 10*3/uL (1.3-4.4); LYMPH % 29.3 % (27.0-41.0); MEAN CELL VOLUME 90.7 fl (80.0-94.0); MEAN CORPUSCULAR HGB CONC 33.1 g/dl (33.0-37.0); MEAN PLATELET VOLUME 9.8 fl (9.6-12.3); MONO # 0.7 10*3/uL (0.1-1.0); NEUT # 4.3 10*3/uL (2.3-7.9); NEUT % 56.9 % (47.0-73.0); PLATELET COUNT AUTOMATED 222 10*3/uL (130-400); RED BLOOD COUNT 4.93 10*6/uL (4.50-5.90); RED CELL DISTRI WIDTH 13.1 % (0-14.5); WHITE BLOOD COUNT 7.6 10*3/uL (4.8-10.8)
[2020-01-27 17:42] LABS: ACT PARTIAL THROMBO TIME 26.3 SECONDS (20.0-32.1); INTERNATIONAL NORM RATIO 0.9 (2.0-3.5)
[2020-01-27 17:50] LABS: ALBUMIN 3.6 gm/dl (3.1-4.5); ALKALINE PHOSPHATASE 61 U/L (45-117); BUN 17 mg/dl (7-24); CHLORIDE 112 mmol/L (98-107); CREATININE 1.53 mg/dL (0.70-1.30); LIPASE 182 U/L (73-393); POTASSIUM 3.8 mmol/L (3.5-5.1); SGOT/AST 13 IU/L (3-35); SGPT/ALT 23 U/L (12-78); SODIUM 143 mmol/L (136-145); TOTAL PROTEIN 6.8 gm/dL (6.4-8.2); TROPONIN I 0.019 ng/ml (<0.045)
== END 2020-01-27 20:48 | disposition home or self-care (01) ==
LOC: ED 16:55
PROVIDERS: Nurse Practitioner Family
DX: J44.9 Chronic obstructive pulmonary disease, unspecified (principal); I10 Essential (primary) hypertension; Z87.891 Personal history of nicotine dependence; Z79.899 Other long term (current) drug therapy

== ENCOUNTER → 2020-03-21 | Outpatient (CLI) | payer OTHER | END | disposition home or self-care (01) | LOC: RAD 10:39 | PROVIDERS: ATTEND Chiropractor | DX: M47.817 Spondylosis without myelopathy or radiculopathy, lumbosacral region (principal); M47.815 Spondylosis without myelopathy or radiculopathy, thoracolumbar region; M48.061 Spinal stenosis, lumbar region without neurogenic claudication; M48.07 Spinal stenosis, lumbosacral region; M46.02 Spinal enthesopathy, cervical region; M47.812 Spondylosis without myelopathy or radiculopathy, cervical region ==

== ENCOUNTER 2021-01-27 03:09 | Inpatient (IN) | payer OTHER ==
[~2021-01-27] VITALS: Ht 187.9 cm; Wt 97.3 kg
[2021-01-27 03:25] VITALS: BP 152/93
[2021-01-27 04:49] LABS: BILIRUBIN Negative (Negative); BLOOD Trace-Lysed (Negative); CLARITY Clear (Clear); COLOR Dark Yellow (Yellow); GLUCOSE Negative (Negative); KETONE Trace (Negative); LEUKO ESTERASE 1+ (Negative); NITRITE Negative (Negative); PH 6.5 (4.5-8.0); SPECIFIC GRAVITY 1.025 (1.001-1.030)
[2021-01-27 05:05] LABS: HEMATOCRIT 51.6 % (42.0-52.0); MEAN CELL VOLUME 91.2 fl (80.0-94.0); MEAN CORPUSCULAR HGB 30.6 pg (27.0-31.0); MEAN CORPUSCULAR HGB CONC 33.5 g/dl (33.0-37.0); MEAN PLATELET VOLUME 10.2 fl (9.6-12.3); PLATELET COUNT AUTOMATED 229 10*3/uL (130-400); RED BLOOD COUNT 5.66 10*6/uL (4.50-5.90); RED CELL DISTRI WIDTH 12.5 % (0-14.5); WHITE BLOOD COUNT 19.6 10*3/uL (4.8-10.8)
[2021-01-27 05:07] LABS: ALBUMIN 3.9 gm/dl (3.1-4.5); CREATININE 1.45 mg/dL (0.70-1.30); POTASSIUM 3.8 mmol/L (3.5-5.1); TOTAL PROTEIN 8.2 gm/dL (6.4-8.2)
[2021-01-27 05:37] LABS: BACTERIA 1+
[2021-01-27 05:43] LABS: ATYPICAL LYMPHS 1 % (0-0); PLATELET SUFFICIENCY NORMAL (NORMAL); TOTAL CELLS COUNTED 100 #CELLS
[2021-01-27 07:24] VITALS: BP 158/99
[2021-01-27 10:12] VITALS: BP 154/87
[2021-01-27] MEDS ORDERED: PRINIVIL20 M1 PO (10:58)
[2021-01-27] MEDS ORDERED: HYDROCHLOROTH12.5 M2 PO (11:01)
[2021-01-27] MEDS ORDERED: IMITREX100 MG PO (11:03)
[2021-01-27 16:00] VITALS: BP 147/87
[2021-01-27 20:00] VITALS: BP 137/79
[2021-01-28] VITALS: BP 126/70
[2021-01-28 06:03] LABS: BASO % 0.2 % (0.0-1.0); EOS % 0.1 % (1.0-4.0); HEMATOCRIT 44.6 % (42.0-52.0); LYMPH # 1.5 10*3/uL (1.3-4.4); LYMPH % 8.7 % (27.0-41.0); MEAN CELL VOLUME 92.3 fl (80.0-94.0); MEAN CORPUSCULAR HGB CONC 32.5 g/dl (33.0-37.0); MEAN PLATELET VOLUME 10.6 fl (9.6-12.3); MONO # 1.5 10*3/uL (0.1-1.0); MONO % 8.4 % (3.0-9.0); NEUT # 14.2 10*3/uL (2.3-7.9); NEUT % 81.9 % (47.0-73.0); PLATELET COUNT AUTOMATED 206 10*3/uL (130-400); RED BLOOD COUNT 4.83 10*6/uL (4.50-5.90); RED CELL DISTRI WIDTH 12.6 % (0-14.5); WHITE BLOOD COUNT 17.4 10*3/uL (4.8-10.8)
[2021-01-28 06:05] LABS: ALBUMIN 2.8 gm/dl (3.1-4.5); BUN 28 mg/dl (7-24); CHLORIDE 107 mmol/L (98-107); POTASSIUM 3.7 mmol/L (3.5-5.1); SODIUM 139 mmol/L (136-145)
[2021-01-28 06:12] LABS: ALKALINE PHOSPHATASE 58 U/L (45-117); CHOLESTEROL 120 mg/dL (<200); FREE T4 1.08 ng/dl (0.76-1.46); LDL CHOLESTEROL 64 mg/dL (9-159); SGOT/AST 23 IU/L (3-35); SGPT/ALT 29 U/L (12-78); THYROID STIM HORMONE (HS) 0.427 uIU/ml (0.358-4.75); TOTAL PROTEIN 6.4 gm/dL (6.4-8.2); TRIGLYCERIDES 97 mg/dl (<150)
[2021-01-28 06:18] LABS: ACT PARTIAL THROMBO TIME 30.8 SECONDS (20.0-32.1)
[2021-01-28 07:01] LABS: VITAMIN D, 25-HYDROXY 39.6 ng/mL (30-100)
[2021-01-28 08:00] VITALS: BP 124/68
[2021-01-28] MEDS ORDERED: OMNICEF300 MG PO (11:38)
[2021-01-28] MEDS ORDERED: ZITHROMAX250 MG PO (11:38)
[2021-01-28] MEDS ORDERED: PHARMASSURE V500 MCG PO (11:38)
[2021-01-28] MEDS ORDERED: DECADRON6 M1 PO (11:41)
[2021-01-28 12:00] VITALS: BP 143/90
== END 2021-01-28 13:00 | disposition home or self-care (01) | DRG 871 ==
LOC: ED 03:09 → EDHOLD 06:53 → 4E 08:15
PROVIDERS: Emergency Medicine; Student in an Organized Health Care Education/Training Program; ADMIT Emergency Medicine; ATTEND Emergency Medicine
DX: A41.9 Sepsis, unspecified organism (principal); J18.9 Pneumonia, unspecified organism; N17.0 Acute kidney failure with tubular necrosis; J44.0 Chronic obstructive pulmonary disease with (acute) lower respiratory infection; N13.6 Pyonephrosis; Z20.822 Contact with and (suspected) exposure to COVID-19; R73.9 Hyperglycemia, unspecified; E80.6 Other disorders of bilirubin metabolism; K76.0 Fatty (change of) liver, not elsewhere classified; I10 Essential (primary) hypertension; E66.3 Overweight; Z87.442 Personal history of urinary calculi; Z87.891 Personal history of nicotine dependence; Z80.6 Family history of leukemia; Z82.49 Family history of ischemic heart disease and other diseases of the circulatory system; Z83.3 Family history of diabetes mellitus; Z80.8 Family history of malignant neoplasm of other organs or systems; Z79.899 Other long term (current) drug therapy; Z68.29 Body mass index [BMI] 29.0-29.9, adult

== ENCOUNTER → 2021-02-16 | Outpatient (CLI) | payer OTHER ==
[~2021-02-16] MED LIST changes: +DECADRON6 M1 PO; +HYDROCHLOROTH12.5 M2 PO; +IMITREX100 MG PO; +OMNICEF300 MG PO; +PHARMASSURE V500 MCG PO; +PRINIVIL20 M1 PO; +ZITHROMAX250 MG PO
[2021-02-16 09:14] LABS: BASO # 0.1 10*3/uL (0.0-0.1); BASO % 0.7 % (0.0-1.0); EOS # 0.4 10*3/uL (0.0-0.4); EOS % 5.4 % (1.0-4.0); HEMATOCRIT 50.2 % (42.0-52.0); LYMPH # 1.8 10*3/uL (1.3-4.4); LYMPH % 26.3 % (27.0-41.0); MEAN CELL VOLUME 93.1 fl (80.0-94.0); MEAN CORPUSCULAR HGB 30.2 pg (27.0-31.0); MEAN CORPUSCULAR HGB CONC 32.5 g/dl (33.0-37.0); MEAN PLATELET VOLUME 9.7 fl (9.6-12.3); MONO # 0.6 10*3/uL (0.1-1.0); MONO % 9.3 % (3.0-9.0); NEUT % 57.7 % (47.0-73.0); PLATELET COUNT AUTOMATED 205 10*3/uL (130-400); RED BLOOD COUNT 5.39 10*6/uL (4.50-5.90); WHITE BLOOD COUNT 6.9 10*3/uL (4.8-10.8)
== END | disposition home or self-care (01) ==
LOC: RAD 09:00
PROVIDERS: ATTEND Family Medicine
DX: J18.9 Pneumonia, unspecified organism (principal)

== ENCOUNTER → 2021-09-13 | Outpatient (CLI) | payer OTHER | END | disposition home or self-care (01) | LOC: RAD 13:07 | PROVIDERS: ATTEND Family Medicine | DX: M16.12 Unilateral primary osteoarthritis, left hip (principal) ==

== ENCOUNTER 2022-10-06 17:00 | Emergency (ER) | payer OTHER ==
[~2022-10-06] VITALS: Ht 182.8 cm; Wt 104.3 kg
[2022-10-06] MEDS ORDERED: LISINOPRIL10 M1 PO (17:18)
[2022-10-06] MEDS ORDERED: OXYCODONE-ACET1 EACH PO (17:19)
[2022-10-06] MEDS ORDERED: TAMSULOSIN HCL0.4 MG PO (17:20)
[2022-10-06] MEDS ORDERED: AMBIEN10 M1 PO (17:21)
[2022-10-06 17:38] LABS: BASO # 0.1 10*3/uL (0.0-0.1); BASO % 0.8 % (0.0-1.0); EOS # 0.2 10*3/uL (0.0-0.4); HEMATOCRIT 49.5 % (42.0-52.0); LYMPH # 2.3 10*3/uL (1.3-4.4); LYMPH % 27.5 % (27.0-41.0); MEAN CELL VOLUME 93.4 fl (80.0-94.0); MEAN CORPUSCULAR HGB 31.9 pg (27.0-31.0); MEAN CORPUSCULAR HGB CONC 34.1 g/dl (33.0-37.0); MEAN PLATELET VOLUME 9.5 fl (9.6-12.3); MONO # 0.9 10*3/uL (0.1-1.0); MONO % 10.5 % (3.0-9.0); NEUT % 58.8 % (47.0-73.0); PLATELET COUNT AUTOMATED 243 10*3/uL (130-400); RED CELL DISTRI WIDTH 13.1 % (0-14.5); WHITE BLOOD COUNT 8.5 10*3/uL (4.8-10.8)
[2022-10-06 17:53] LABS: ALKALINE PHOSPHATASE 61 U/L (46-116); BUN 14 mg/dl (9-23); CHLORIDE 106 mmol/L (98-107); LIPASE 47 U/L (12-53); POTASSIUM 3.8 mmol/L (3.4-5.1); SGPT/ALT 30 U/L (10-49); TOTAL PROTEIN 7.4 gm/dL (6.0-8.0)
[2022-10-06] MEDS ORDERED: ONDANSETRON4 MG SL (19:03)
== END 2022-10-06 19:30 | disposition home or self-care (01) ==
LOC: ED 17:00
PROVIDERS: Physician Assistant
DX: R11.0 Nausea (principal); I10 Essential (primary) hypertension; J45.909 Unspecified asthma, uncomplicated; Z87.442 Personal history of urinary calculi; E78.00 Pure hypercholesterolemia, unspecified; Z98.890 Other specified postprocedural states; Z87.891 Personal history of nicotine dependence; Z20.822 Contact with and (suspected) exposure to COVID-19

== ENCOUNTER 2023-01-08 21:57 | Emergency (ER) | payer OTHER ==
[~2023-01-08] VITALS: Ht 182.8 cm; Wt 104.3 kg
[~2023-01-08 21:57] MED LIST changes: +AMBIEN10 M1 PO; +LISINOPRIL10 M1 PO; +ONDANSETRON4 MG SL; +OXYCODONE-ACET1 EACH PO
== END 2023-01-09 04:23 | disposition home or self-care (01) ==
LOC: ED 21:57
DX: G43.909 Migraine, unspecified, not intractable, without status migrainosus (principal); R11.2 Nausea with vomiting, unspecified; I10 Essential (primary) hypertension; J45.909 Unspecified asthma, uncomplicated; Z87.442 Personal history of urinary calculi; E78.00 Pure hypercholesterolemia, unspecified; Z98.890 Other specified postprocedural states; Z87.891 Personal history of nicotine dependence

== ENCOUNTER 2023-04-02 13:42 | Emergency (ER) | payer OTHER | END 2023-04-02 15:46 | disposition left against medical advice (07) | LOC: ED 13:42 | DX: R03.0 Elevated blood-pressure reading, without diagnosis of hypertension (principal); Z53.21 Procedure and treatment not carried out due to patient leaving prior to being seen by health care provider ==

== ENCOUNTER 2023-07-20 04:45 | Emergency (ER) | payer OTHER ==
[2023-07-20] MEDS ORDERED: PREDNISONE50 MG PO (06:15)
== END 2023-07-20 06:33 | disposition home or self-care (01) ==
LOC: ED 04:45
DX: M47.9 Spondylosis, unspecified (principal); I10 Essential (primary) hypertension; J45.909 Unspecified asthma, uncomplicated; Z87.442 Personal history of urinary calculi; Z98.890 Other specified postprocedural states; Z87.891 Personal history of nicotine dependence; E78.00 Pure hypercholesterolemia, unspecified

== ENCOUNTER 2023-07-20 15:12 | Emergency (ER) | payer OTHER ==
[~2023-07-20] VITALS: Ht 182.8 cm; Wt 104.3 kg
[~2023-07-20 15:12] MED LIST changes: +PREDNISONE50 MG PO
== END 2023-07-20 15:50 | disposition home or self-care (01) ==
LOC: ED 15:12
DX: M54.50 Low back pain, unspecified (principal); M25.552 Pain in left hip; M25.551 Pain in right hip; M19.09 Primary osteoarthritis, other specified site; I10 Essential (primary) hypertension; J45.909 Unspecified asthma, uncomplicated; Z87.442 Personal history of urinary calculi; E78.00 Pure hypercholesterolemia, unspecified; Z98.890 Other specified postprocedural states; Z87.891 Personal history of nicotine dependence

== ENCOUNTER 2023-09-14 11:36 | Emergency (ER) | payer OTHER ==
[~2023-09-14] VITALS: Ht 182.8 cm; Wt 104.3 kg
== END 2023-09-14 11:58 | disposition left against medical advice (07) ==
LOC: ED 11:36
DX: M54.50 Low back pain, unspecified (principal); M54.2 Cervicalgia; M25.512 Pain in left shoulder; M19.90 Unspecified osteoarthritis, unspecified site; Z79.899 Other long term (current) drug therapy; Z87.891 Personal history of nicotine dependence; Z53.29 Procedure and treatment not carried out because of patient's decision for other reasons

== ENCOUNTER 2024-03-23 08:16 | Emergency (ER) | payer OTHER ==
[~2024-03-23] VITALS: Ht 182.8 cm; Wt 95.3 kg
[2024-03-23] MEDS ORDERED: Acetaminophen/Oxycodone 5 MG/325 MG TABLET PO ONE (08:35)
== END 2024-03-23 10:58 | disposition home or self-care (01) ==
LOC: ED 08:16
DX: M77.31 Calcaneal spur, right foot (principal); I10 Essential (primary) hypertension; J45.909 Unspecified asthma, uncomplicated; Z87.442 Personal history of urinary calculi; Z98.890 Other specified postprocedural states; Z87.891 Personal history of nicotine dependence